=== PATIENT | male | born 1970 | race African-American/Black ===

== ENCOUNTER 2024-01-31 14:03 | Outpatient (OUT) | payer BC, SELFPAY ==
--- NOTE | 2024-01-31 14:14 | XR_ITS ---
[address] [address] Patient Name: ALEN FERMIN MRN: [id number] date: 1970 Sex: M Assigned Patient Location: [facility] Current Patient Location: Accession/Order Number: [id number] Exam Date: 01/31/2024 14:18 Report Date: 02/03/2024 07:52 At the request of: CAMILLE PANCHAL Procedure: XR shoulder LT min 2V PROCEDURE: XR shoulder LT min 2V COMPARISON: None. HISTORY: Acromioclavicular Joint Injury S49.92XA FINDINGS: BONES:No acute fracture or dislocation. Mild acromioclavicular joint osteoarthropathy SOFT TISSUES:Negative. No visible soft tissue swelling. EFFUSION:None visible. OTHER: Suture lines left lung apex XR/XR shoulder LT min 2V IMPRESSION: No acute abnormality Electronically authenticated by: ROBLES GAO Date: 02/03/2024 07:52
== END 2024-01-31 14:04 | disposition home or self-care (01) ==
LOC: RAD 14:08
PROVIDERS: PCP Family Medicine; Visit Provider Family Medicine
DX: S49.92XA Unspecified injury of left shoulder and upper arm, initial encounter (principal)
CPT/HCPCS: 73030